=== PATIENT | female | born 1950 | race Caucasian/White ===

== ENCOUNTER 2025-04-11 06:47 | Emergency (ER) | payer OTHER ==
[2025-04-11] MEDS ORDERED: HYDROcodone/Acetaminophen 5/325 mg Tablet ONE (07:17)
== END 2025-04-11 09:20 | disposition home or self-care (01) ==
LOC: MADERS 06:47
DX: S02.40CA Maxillary fracture, right side, initial encounter for closed fracture (principal); S02.842A Fracture of lateral orbital wall, left side, initial encounter for closed fracture; M50.31 Other cervical disc degeneration, high cervical region; M50.323 Other cervical disc degeneration at C6-C7 level; I63.81 Other cerebral infarction due to occlusion or stenosis of small artery; E03.9 Hypothyroidism, unspecified; E78.5 Hyperlipidemia, unspecified; I10 Essential (primary) hypertension; K21.9 Gastro-esophageal reflux disease without esophagitis; Z79.899 Other long term (current) drug therapy; Z79.890 Hormone replacement therapy; W18.30XA Fall on same level, unspecified, initial encounter; Y93.01 Activity, walking, marching and hiking
CPT/HCPCS: 70450; 70486; 72125